=== PATIENT | male | born 1990 | race American Indian/Alaskan Native ===

== ENCOUNTER 2017-08-30 13:31 | Emergency (ER) | payer BC, OTHER ==
[2017-08-30 13:41] VITALS: BP 187/97; PULSE 104; RESP 16; TEMP 98.7
--- NOTE | 2017-08-30 13:52 | ED ---
General Adult HPI - General Chief complaint: Seizure Stated complaint: Seizure Time Seen by Provider: 08/30/17 13:40 Source: patient, EMS, RN notes reviewed Mode of arrival: EMS Limitations: no limitations - History of Present Illness Initial comments: 27-year-old male presents for evaluation of altered mental status and concern for new onset seizure. Patient was at a local restaurant with his , complained of mild frontal headache. This was followed by 60 seconds of generalized shaking. 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 Father is at bedside. Patient denies any complaints at the time my evaluation, no headache, no focal weakness. She states that he has not slept in the past 28 hours, has not eaten since yesterday. He believes this was the cause of this episode. He has no seizure history. No loss of bowel or bladder function, no tongue biting. She was brought in by EMS. - Related Data Home Medications Medication Instructions Recorded Confirmed No Known Home Medications [No 08/30/17 08/30/17 Known Home Medications] Allergies Allergy/AdvReac Type Severity Reaction Status Date / Time No Known Allergies Allergy Verified 08/30/17 13:41 Review of Systems ROS Statement: Those systems with pertinent positive or pertinent negative responses have been documented in the HPI. ROS Other: All systems not noted in ROS Statement are negative. Past Medical History Past Medical History: No Reported History History of Any Multi-Drug Resistant Organisms: None Reported Past Surgical History: No Surgical Hx Reported Past Psychological History: No Psychological Hx Reported Smoking Status: Never smoker Past Alcohol Use History: None Reported Past Drug Use History: None Reported General Exam Limitations: no limitations General appearance: alert, in no apparent distress Head exam: Present: atraumatic, normocephalic Eye exam: Present: normal appearance, PERRL, EOMI. Absent: scleral icterus, conjunctival injection ENT exam: Present: normal exam Neck exam: Present: normal inspection. Absent: tenderness, meningismus Respiratory exam: Present: normal lung sounds bilaterally. Absent: respiratory distress, wheezes Cardiovascular Exam: Present: regular rate, normal rhythm GI/Abdominal exam: Present: soft. Absent: distended, tenderness Extremities exam: Present: normal inspection, full ROM Neurological exam: Present: alert, oriented X3, CN II-XII intact. Absent: motor sensory deficit Psychiatric exam: Present: normal affect, normal mood Skin exam: Present: warm, dry, intact. Absent: cyanosis, diaphoretic Course Vital Signs 08/30/17 13:33 Temperature 98.7 F Pulse Rate 104 H Respiratory 16 Rate Blood Pressure 187/97 O2 Sat by Pulse 98 Oximetry Medical Decision Making - Medical Decision Making 27-year-old male presenting with symptoms concerning for new onset seizure. Patient is well-appearing at the time of my examination, has no complaints. Denies headache. Neurologic examination is nonfocal. Patient does not want any further testing or evaluation. He is offered workup including CBC, CMP, EKG , and CT of the head, he declines this workup. His father who is a neurologist (Dr. Mejia) and is at bedside also declines. They wish to be discharged and will return with worsening symptoms. Patient is instructed not to drive and will comply. They will return to the emergency department with worsening symptoms or the return of seizure-like activity. Disposition Clinical Impression: New onset seizure Disposition: HOME SELF-CARE Condition: Good Instructions: New-Onset Seizure in Adults (ED) Additional Instructions: Return to emergency department with worsening symptoms or recurrent seizure. Referrals: None,Stated [Primary Care Provider] - 1-2 days Birgit Mejia MD [STAFF PHYSICIAN] - 1-2 days Time of Disposition: 13:52
== END 2017-08-30 13:58 | disposition home or self-care (01) ==
LOC: EC 13:31
DX: R56.9 Unspecified convulsions (principal); R51 Headache; R41.82 Altered mental status, unspecified
CPT/HCPCS: 99284